=== PATIENT | male | born 1960 | race Caucasian/White ===

== ENCOUNTER 2016-11-10 11:46 | Observation (INO) | payer OTHER ==
[2016-11-10] MEDS ORDERED: SODIUM CHLORIDE 500 ML IV ONE (11:54)
--- NOTE | 2016-11-10 11:54 | PDOC ---
History of Present Illness - General History Source: Patient Exam Limitations: No Limitations - History of Present Illness Initial Comments: 11/10/16 11:59 The patient is a 56-year-old man with a significant past medical history of hypertension, hypercholesterolemia and borderline diabetes (not on any medications; diet controlled) who presents to the emergency department for further evaluation of near syncope after rapid response. Patient states that he felt fine this morning. He admits he was feeling slightly hot and sweaty on his way into the hospital but he attributed this to wearing a sweater. He states that he was at medical records when he went up to the window and suddenly felt lightheaded, generally weak and nauseous. He was able to walk back to his chair when he states that there was a brief period of time (approximately 1-2 minutes ) where he can not recall the events. He denies experiencing any chest pain, chest pressure, dizziness, visual changes, nausea, abdominal pain, back pain, neck pain, lower extremity pain, headache prior/post event. He reports typically having shortness of breath one exertion, particularly when walking just about 3 blocks (for the past year). He reports that he has never had a full Cardiology workup. No history of echocardiograms/stress tests in the past. He attributes his symptoms of lightheadedness and nausea secondary to a low sugar count, although on rapid response scene, he was noted to have a blood glucose measurement of 110. Patient was given a few sips of Pepsi and was transferred down to the ED. Patient recalls a similar episode in the past (a few months ago), with associated shaking, had 2 cans of soda and felt immediately fine. No fever, chills. No abdominal pain, nausea, vomiting. No urinary complaints. Allergies: Sulfonamide antibiotics. Shellfish Past Surgical History: None reported Social History: No tobacco, EtOH and recreational drug use. Primary Care Physician: Jin Ayala [facility] <Arely Martínez - Last Filed: 11/10/16 13:14> <Devin Suh - Last Filed: 11/10/16 13:19> - General Chief Complaint: Lightheaded Stated Complaint: RAPID RESPONSE Time Seen by Provider: 11/10/16 11:53 Past History <Arely Martínez - Last Filed: 11/10/16 13:14> <Devin Suh - Last Filed: 11/10/16 13:19> - Past Medical History Allergies/Adverse Reactions: Allergies Allergy/AdvReac Type Severity Reaction Status Date / Time shellfish derived Allergy Severe Hives Verified 11/10/16 11:54 Sulfa (Sulfonamide Allergy Severe Difficulty Verified 11/10/16 11:54 Antibiotics) Breathing Home Medications: Ambulatory Orders Unobtainable [Unobtainable] 11/10/16 Review of Systems - Review of Systems Constitutional: No: Chills, Fever Respiratory: No: Cough, Shortness of Breath Cardiac (ROS): Yes: Lightheadedness, Syncope. No: Chest Pain, Edema, Palpitations ABD/GI: No: Diarrhea, Nausea, Vomiting All Other Systems: Reviewed and Negative <Devin Suh - Last Filed: 11/10/16 13:19> *Physical Exam - Physical Exam Comments: 11/10/16 11:59 GENERAL: The patient is awake, alert, and fully oriented, in no acute distress. HEAD: Normal with no signs of trauma. EYES: Pupils equal, round and reactive to light, extraocular movements intact, sclera anicteric, conjunctiva clear with no pallor. ENT: Ears normal, nares patent, oropharynx clear without exudates. Moist mucous membranes. NECK: Normal range of motion, supple without lymphadenopathy, JVD, or masses. LUNGS: Breath sounds equal, clear to auscultation bilaterally. No wheeze/ crackles. HEART: Regular rate and rhythm, normal S1 and S2 without murmur or rub. ABDOMEN: Soft/nontender/nondistended. BS wnl. No guarding or rebound. No palpable masses. No hepatosplenomegaly. EXTREMITIES: Normal range of motion, no edema. No clubbing or cyanosis. No cords, erythema, or tenderness. NEUROLOGICAL: Cranial nerves II through XII grossly intact. Normal speech. PSYCH: Normal mood, normal affect. SKIN: Warm, Dry, normal turgor, no rashes or lesions noted. <Arely Martínez - Last Filed: 11/10/16 13:14> Heart Score/ECG Review #1 ECG reviewed & interpreted by me at: 11:48 General ECG Interpretation: Sinus Rhythm, Normal Rate (88), Normal Intervals ( qtc 438), No acute ischemic changes <Mary Suhele - Last Filed: 11/10/16 13:19> ED Treatment Course - LABORATORY CBC & Chemistry Diagram: 11/10/16 11:53 11/10/16 11:53 - RADIOLOGY Radiograph Interpretation: 11/10/16 13:14 EXAM: RAD/CHEST X-RAY PORTABLE Interpreted by Dr. Taz Perez IMPRESSION: AP sitting portable chest x-ray. No evidence of pneumonia, CHF, pleural effusion or pneumothorax. No evidence of bulky hilar, mediastinal adenopathy. Scoliotic curvature of the thoracic spine. EKG leads are noted. <Arely Martínez - Last Filed: 11/10/16 13:14> - LABORATORY CBC & Chemistry Diagram: 11/10/16 11:53 11/10/16 11:53 <VikashDevin - Last Filed: 11/10/16 13:19> Medical Decision Making - Medical Decision Making 11/10/16 13:12 MicroBlogged Hospitalist. <Arely Martínez - Last Filed: 11/10/16 13:14> - Medical Decision Making 11/10/16 12:33 A portion of this note was documented by scribe services under my direction. I have reviewed the details of the note, within reason, and agree with the documentation with the following case summary and management plan written by me. 56-year-old male with history of hypertension and high cholesterol, borderline diabetes presents to the emergency department as rapid response activation. Patient was in the hospital obtaining records for his grandson, after walking to the medical records window he became lightheaded and nauseous and diaphoretic , had near syncope. Patient assumed his glucose levels had gone down, he was given soda and his glucose level upon arrival in the emergency department a few minutes later was 110. Denies any chest pain or palpitations, reports baseline exercise tolerance of 3 blocks of the past year, never had a stress test or echocardiogram. No recent leg swelling or cramping, no PE risk factors. Vital signs normal. Exam is normal. 56-year-old male with near syncope, now improved. Unlikely that this was close related, more likely vasovagal/orthostatic versus arrhythmia/primary cardiac. Given risk factors and no history of stress test or echo, ACS or valve pathology is certainly on the differential. Labs, urinalysis EKG, chest x-ray IV fluids Monitor, likely cardiac monitoring overnight 11/10/16 13:18 labs wnl. nl hgb, trop neg. feels well, no complaints. accepted for obs tele by Dr. Amor. <Devin Suh - Last Filed: 11/10/16 13:19> *DC/Admit/Observation/Transfer - Attestations Scribe Attestion: 11/10/16 11:59 Documentation prepared by Arely Martínez, acting as medical physicist for Devin Suh MD. <Arely Martínez - Last Filed: 11/10/16 13:14> - Discharge Dispostion Admit: Yes <Devin Suh - Last Filed: 11/10/16 13:19> Diagnosis at time of Disposition: Near syncope - Discharge Dispostion Condition at time of disposition: Fair - Referrals Referrals: STAFF,NOT ON [Primary Care Provider] -
[2016-11-10 12:07] VITALS: BMI 32.1
[2016-11-10 12:12] LABS: BASOPHIL 0.7 % (0-2.0); EOSINOPHIL 1.4 % (0-4.5); MCH 28.2 pg (25.7-33.7); MCHC 32.1 g/dl (32.0-35.9); MEAN CELL VOLUME 87.6 fl (80-96); MEAN PLT VOLUME 8.1 fl (7.5-11.1); NEUTROPHILS 52.8 % (42.8-82.8); PLATELET COUNT 172 K/MM3 (134-434); RDW 14.5 % (11.9-15.9); WHITE BLOOD COUNT 8.6 K/mm3 (4.0-10.0)
[2016-11-10 12:34] LABS: ALBUMIN 3.9 g/dl (3.4-5.0); ANION GAP 9 (8-16); BILIRUBIN,TOTAL 0.4 mg/dL (0.2-1.0); CALCIUM 8.6 mg/dL (8.5-10.1); CO2 24 mmol/L (21-32); COCKROFT - GAULT 55.73; CREATININE 1.9 mg/dL (0.7-1.3); GLUCOSE,RANDOM 109 mg/dL (74-106); SGPT/ALT 41 U/L (12-78); TOT PROT 7.6 g/dl (6.4-8.2)
[2016-11-10 12:36] LABS: ALK PHOS 69 U/L (45-117); TROPONIN I < 0.02 ng/ml (0.00-0.05)
[2016-11-10 12:38] LABS: MAGNESIUM 2.3 mg/dL (1.8-2.4); SGOT/AST 42 U/L (15-37)
--- NOTE | 2016-11-10 12:53 | EKG ---
Test Reason : Blood Pressure : / mmHG Vent. Rate : 088 BPM Atrial Rate : 088 BPM P-R Int : 148 ms QRS Dur : 092 ms QT Int : 362 ms P-R-T Axes : 033 -04 020 degrees QTc Int : 438 ms NORMAL SINUS RHYTHM POSSIBLE ANTERIOR INFARCT , AGE UNDETERMINED ABNORMAL ECG NO PREVIOUS ECGS AVAILABLE Confirmed by MOON KAISER MD ([id number]) on 11/10/2016 12:52:41 PM Referred By: Confirmed By:MOON KAISER MD
[2016-11-10 12:54] LABS: INR 1.04 (0.82-1.09); PROTHROMBIN TIME (PATIENT) 11.4 SEC (9.98-11.88)
--- NOTE | 2016-11-10 14:38 | HP ---
CHIEF COMPLAINT:near syncope PCP: Dr. Sow @ [facility] clinic. HISTORY OF PRESENT ILLNESS: 56 yo M with significant PMHx of HTN, HLD and migraines presents to ER after near syncopal episode in hospital. He was at [facility] standing in line to picking supervisor some medical records for his grandson when he suddenly felt hot and flushed. He subsequently became shaky, diaphoretic and felt as if he was going to pass out.As per patient he states "it felt like my sugars were low".He did not have any chest pain , palpitations or heart irregularity. He was given some pepsi and a cookie and transferred down to ED for further evaluation. In ED vitals were stable and he felt better. He does mention that he has had 2-3 similar episodes in past were he felt his sugar was low after prolonged periods of standing or walking. He endorsed dysnea on exertion for the past year that has become progressively worse to point where his is winded after walking 3 blocks. He states he sleeps with 2-3 pillows at night and notices some foot and ankle swelling on occasion. He also endorses signs of orthostatic hypotension. He has never had cardiac work up with echo or stress test. Denies fever, chills. recent illness or sick contacts. ER course was notable for: (1)EKG- NSR , no st or t wave abnormalities (2)CXR- no acute pathology; no effusion or consolidation. (3)BG- 101 Recent Travel:Denies PAST MEDICAL HISTORY: HTN, HLD, Depression, Chronic osteo arthritis, migraines. PAST SURGICAL HISTORY: none Social History: Smoking:never Alcohol:never Drugs: denies Family History: Father: heart disease at 60 , Mother pancreatic ca. Allergies shellfish derived Allergy (Severe, Verified 11/10/16 11:54) Hives Sulfa (Sulfonamide Antibiotics) Allergy (Severe, Verified 11/10/16 11:54) Difficulty Breathing HOME MEDICATIONS: Home Medications Medication Instructions Recorded Unobtainable [Unobtainable] 11/10/16 REVIEW OF SYSTEMS CONSTITUTIONAL:(+)diaphoresis, generalized weakness Absent: fever, chills, , malaise, loss of appetite, weight change HEENT: Absent: rhinorrhea, nasal congestion, throat pain, throat swelling, difficulty swallowing, mouth swelling, ear pain, eye pain, visual changes CARDIOVASCULAR:(+) syncope Absent: chest pain, palpitations, irregular heart rate, lightheadedness, peripheral edema RESPIRATORY: Absent: cough, shortness of breath, dyspnea with exertion, orthopnea, wheezing, stridor, hemoptysis GASTROINTESTINAL: Absent: abdominal pain, abdominal distension, nausea, vomiting, diarrhea, constipation, melena, hematochezia GENITOURINARY: Absent: dysuria, frequency, urgency, hesitancy, hematuria, flank pain, genital pain MUSCULOSKELETAL: (+) chronic joint pain Absent: myalgia, arthralgia, joint swelling, back pain, neck pain SKIN: Absent: rash, itching, pallor HEMATOLOGIC/IMMUNOLOGIC: Absent: easy bleeding, easy bruising, lymphadenopathy, frequent infections ENDOCRINE: Absent: unexplained weight gain, unexplained weight loss, heat intolerance, cold intolerance NEUROLOGIC: (+) dizziness Absent: headache, focal weakness or paresthesias, , unsteady gait, seizure, mental status changes, bladder or bowel incontinence PSYCHIATRIC: Absent: anxiety, depression, suicidal or homicidal ideation, hallucinations. PHYSICAL EXAMINATION GENERAL: AAOx3 , NAD HEAD: NC/AT EYES: PERRLA,EOMI, sclera anicteric, conjuctival erythema. No lid lag. EARS, NOSE, THROAT: Dry mucous membranes. NECK:supple without JVD, or masses. LUNGS: CTAB, No wheezes, and no crackles. No accessory muscle use. HEART: RRR, normal S1 and S2 without murmur, rub or gallop. ABDOMEN: Soft, NT,ND,BS(+), no guarding, no rebound, no masses. No hepatomegaly or splenomegaly. MUSCULOSKELETAL: Normal range of motion at all joints. No bony deformities or tenderness. No CVA tenderness. UPPER EXTREMITIES: 2+ pulses, warm, well-perfused. No cyanosis. No clubbing. No peripheral edema. LOWER EXTREMITIES: 2+ pulses, warm, well-perfused. No calf tenderness. No peripheral edema. NEUROLOGICAL: Cranial nerves II-XII intact. Normal speech. gait not observed. PSYCHIATRIC: Cooperative. Good eye contact. Appropriate mood and affect. SKIN: Warm, dry, normal turgor, no rashes or lesions noted, normal capillary refill. ASSESSMENT/PLAN: 56 yo M with HTN, HLD, and migraines placed on observation for near syncopal episode. Problem List - Problem (1) Near syncope Assessment/Plan: * Placed on tele obs. * ECHO and carotid doppler ordered * Orthostatic VS * strict I/O's * IV hydration with NS @ 83ml/hr * HgbA1c * BNP * UA * Cardiology consult - Dr. Kauffman (2) HTN (hypertension) (3) HLD (hyperlipidemia) (4) Depression (5) Chronic migraine (6) Osteoarthritis involving multiple joints on both sides of body Visit type - Emergency Visit Emergency Visit: Yes ED Registration Date: 11/10/16 Care time: The patient presented to the Emergency Department on the above date and was hospitalized for further evaluation of their emergent condition. - New Patient This patient is new to me today: Yes Date on this admission: 11/10/16 - Critical Care Critical Care patient: No
--- NOTE | 2016-11-10 15:07 | CON.CARD ---
Consult Consult Specialty:: Cardiology Referred by:: Hospitalist Medicine Reason for Consultation:: Near syncope - History of Present Illness Chief Complaint: Near syncope History of Present Illness: 56 yo M with significant PMHx of HTN, HLD and migraines presents to ER after near syncopal episode in hospital. He was standing in line when he suddenly felt hot and flushed, diaphoretic and experienced near syncope, possible hypoglycemia, but denies true syncope. He denies chest pain, palpitations, does report dysnea on exertion for the past year that has become progressively worse to point where he becomes winded after walking 3 blocks, stable orthopnea. Recent Travel:Denies PAST MEDICAL HISTORY: HTN, HLD, Depression, Chronic osteo arthritis, migraines. PAST SURGICAL HISTORY: none Social History: Smoking:never Alcohol:never Drugs: denies Family History: Father: heart disease at 60 , Mother pancreatic ca. Allergies shellfish derived Allergy (Severe, Verified 11/10/16 11:54) Hives Sulfa (Sulfonamide Antibiotics) Allergy (Severe, Verified 11/10/16 11:54) Difficulty Breathing - History Source History Provided By: Patient Limitations to Obtaining History: No Limitations - Alcohol/Substance Use Hx Alcohol Use: No - Smoking History Smoking history: Never smoked Home Medications - Allergies Allergies/Adverse Reactions: Allergies Allergy/AdvReac Type Severity Reaction Status Date / Time shellfish derived Allergy Severe Hives Verified 11/10/16 11:54 Sulfa (Sulfonamide Allergy Severe Difficulty Verified 11/10/16 11:54 Antibiotics) Breathing - Home Medications Home Medications: Ambulatory Orders Unobtainable [Unobtainable] 11/10/16 Review of Systems - Review of Systems Neurological: reports: Dizziness Vital Signs: Vital Signs Temperature 98.0 F 11/10/16 12:00 Pulse Rate 70 11/10/16 14:05 Respiratory Rate 18 11/10/16 14:05 Blood Pressure 137/99 11/10/16 14:05 O2 Sat by Pulse Oximetry (%) 100 11/10/16 14:05 Constitutional: Yes: No Distress, Calm Neck: Yes: Supple Respiratory: Yes: Regular, CTA Bilaterally Gastrointestinal: Yes: Normal Bowel Sounds, Soft Cardiovascular: Yes: Regular Rate and Rhythm JVD: No Carotid Bruit: No Heart Sounds: Yes: S1, S2 Edema: No - Other Data Labs, Other Data: INR, PTT INR 1.04 (0.82-1.09) 11/10/16 11:53 NSR @ 88 PRWP Problem List - Problems (1) HLD (hyperlipidemia) Code(s): E78.5 - HYPERLIPIDEMIA, UNSPECIFIED Qualifiers: Hyperlipidemia type: pure hypercholesterolemia Qualified Code(s): E78.00 - Pure hypercholesterolemia, unspecified; E78.0 - Pure hypercholesterolemia (2) HTN (hypertension) Code(s): I10 - ESSENTIAL (PRIMARY) HYPERTENSION Qualifiers: Hypertension type: essential hypertension Qualified Code(s): I10 - Essential (primary) hypertension (3) Near syncope Code(s): R55 - SYNCOPE AND COLLAPSE Assessment/Plan 1. Vasovagal near syncope with typical prodromal sxs possible hypoglycemic episode 2. HTN 3. Hyperlipidemia P:1. Check orthostatic VS, f/u echo and carotid u/s, tele to r/o sustained arrhythmia 2. Counselled on abortive maneuvers once prodromal sxs are re-experienced, stay well-hydrated, monitor BGT 3. Review outpatient medications 4. Thank you for consultative opportunity
[2016-11-10] MEDS: SODIUM CHLORIDE 1,000 ML IV SCH (15:29)
--- NOTE | 2016-11-10 18:58 | PN ---
Teaching Attending Note Name of Resident: Gee Sandhu ATTENDING PHYSICIAN STATEMENT I saw and evaluated the patient. I reviewed the resident's note and discussed the case with the resident. I agree with the resident's findings and plan as documented. SUBJECTIVE: Patient is feeling better with no acute distress. No fever or chills, no shortness of breath. OBJECTIVE: Vital Signs Temperature 98.6 F 11/10/16 16:56 Pulse Rate 97 H 11/10/16 16:56 Respiratory Rate 18 11/10/16 14:05 Blood Pressure 151/96 11/10/16 16:56 O2 Sat by Pulse Oximetry (%) 100 11/10/16 14:05 CBCD WBC 8.6 K/mm3 (4.0-10.0) 11/10/16 11:53 RBC 5.22 M/mm3 (4.00-5.60) 11/10/16 11:53 Hgb 14.7 GM/dL (11.7-16.9) 11/10/16 11:53 Hct 45.7 % (35.4-49) 11/10/16 11:53 MCV 87.6 fl (80-96) 11/10/16 11:53 MCHC 32.1 g/dl (32.0-35.9) 11/10/16 11:53 RDW 14.5 % (11.9-15.9) 11/10/16 11:53 Plt Count 172 K/MM3 (134-434) 11/10/16 11:53 MPV 8.1 fl (7.5-11.1) 11/10/16 11:53 CMP Sodium 139 mmol/L (136-145) 11/10/16 11:53 Potassium 4.9 mmol/L (3.5-5.1) 11/10/16 11:53 Chloride 106 mmol/L (98-107) 11/10/16 11:53 Carbon Dioxide 24 mmol/L (21-32) 11/10/16 11:53 Anion Gap 9 (8-16) 11/10/16 11:53 BUN 27 mg/dL (7-18) H 11/10/16 11:53 Creatinine 1.9 mg/dL (0.7-1.3) H 11/10/16 11:53 Creat Clearance w eGFR 36.59 (>60) 11/10/16 11:53 Random Glucose 109 mg/dL (74-106) H 11/10/16 11:53 Calcium 8.6 mg/dL (8.5-10.1) 11/10/16 11:53 Total Bilirubin 0.4 mg/dL (0.2-1.0) 11/10/16 11:53 AST 42 U/L (15-37) H 11/10/16 11:53 ALT 41 U/L (12-78) 11/10/16 11:53 Alkaline Phosphatase 69 U/L (45-117) 11/10/16 11:53 Total Protein 7.6 g/dl (6.4-8.2) 11/10/16 11:53 Albumin 3.9 g/dl (3.4-5.0) 11/10/16 11:53 CARDIAC ENZYMES Creatine Kinase 319 IU/L (39-308) H 11/10/16 11:53 Troponin I < 0.02 ng/ml (0.00-0.05) 11/10/16 11:53 Current Medications Generic Name Dose Route Start Last Admin Trade Name Freq PRN Reason Stop Dose Admin Heparin Sodium (Porcine) 5,000 unit 11/10/16 22:00 Heparin - SQ BID [facility] Sodium Chloride 1,000 mls @ 83 mls/hr 11/10/16 14:15 11/10/16 15:29 Normal Saline - IV 83 mls/hr ASDIR KELTON Administration Home Medications Medication Instructions Recorded Unobtainable [Unobtainable] 11/10/16 Cardiac: S1S2 positive Chest: CTA BL ABdomen : soft, NT, NR, Extremities: Pulses are positive, No edema ROS/PE: as per resident's note ASSESSMENT AND PLAN: 56 yo M with HTN, HLD, and migraines placed on observation for near syncopal episode. #Near syncope : most likely Vasovagal ,Placed on tele obs. ordered ECHO and carotid doppler, CE q6hr x3 , EKG, check Orthostatic BP ; IV hydration with NS @ 83ml/hr x 1 liter ; check HgbA1c ,BNP , Cardiology consult Dr. Kauffman appreciated. # Htn continue home meds # Hyperlipidemia continue meds. DVT Px:
[2016-11-10] MEDS: HEPARIN NA (PORCINE) 5,000 UNITS/ML 1ML VIAL SQ SCH (22:22)
[2016-11-11 07:57] LABS: ALBUMIN 3.4 g/dl (3.4-5.0); CALCIUM 8.5 mg/dL (8.5-10.1); MAGNESIUM 2.3 mg/dL (1.8-2.4)
[2016-11-11 08:00] LABS: BILIRUBIN,TOTAL 0.3 mg/dL (0.2-1.0); COCKROFT - GAULT 58.83; CREATININE 1.8 mg/dL (0.7-1.3); TOT PROT 6.7 g/dl (6.4-8.2)
[2016-11-11 08:02] LABS: EOSINOPHIL 1.7 % (0-4.5); MCH 28.3 pg (25.7-33.7); MCHC 32.2 g/dl (32.0-35.9); MEAN CELL VOLUME 87.9 fl (80-96); MEAN PLT VOLUME 8.5 fl (7.5-11.1); NEUTROPHILS 60.8 % (42.8-82.8); PLATELET COUNT 159 K/MM3 (134-434); RDW 14.8 % (11.9-15.9); WHITE BLOOD COUNT 6.2 K/mm3 (4.0-10.0)
[2016-11-11] MEDS: HEPARIN NA (PORCINE) 5,000 UNITS/ML 1ML VIAL SQ SCH (09:34)
[2016-11-11] MEDS ORDERED: PROPRANOLOL HCL 40 MG TABLET PO SCH (10:00)
[2016-11-11] MEDS ORDERED: amLODIPine BESYLATE 5 MG TABLET (FP) PO SCH (10:00)
[2016-11-11 11:43] VITALS: BP 132/89; TEMP 98
--- NOTE | 2016-11-11 12:22 | PN ---
Progress Note, Physician History of Present Illness: No further near or true syncope, denies chest pain, dyspnea or palpitations. - Current Medication List Current Medications: Active Medications Amlodipine Besylate (Norvasc -) 5 mg PO DAILY [facility] Last Admin: 11/11/16 09:34 Dose: 5 mg Atorvastatin Calcium (Lipitor -) 10 mg PO [facility] Heparin Sodium (Porcine) (Heparin -) 5,000 unit SQ BID [facility] Last Admin: 11/11/16 09:34 Dose: 5,000 unit Sodium Chloride (Normal Saline -) 1,000 mls @ 83 mls/hr IV ASDIR [facility] Last Admin: 11/10/16 15:29 Dose: 83 mls/hr Propranolol HCl (Inderal -) 40 mg PO DAILY [facility] Last Admin: 11/11/16 09:43 Dose: 40 mg - Objective Vital Signs: Vital Signs Temperature 98.0 F 11/11/16 10:00 Pulse Rate 67 11/11/16 10:00 Respiratory Rate 20 11/11/16 10:00 Blood Pressure 132/89 11/11/16 10:00 O2 Sat by Pulse Oximetry (%) 97 11/11/16 08:00 Constitutional: Yes: No Distress, Calm Neck: Yes: Supple Cardiovascular: Yes: Regular Rate and Rhythm Respiratory: Yes: Regular, CTA Bilaterally Gastrointestinal: Yes: Normal Bowel Sounds, Soft Edema: No Labs: CBC, BMP 11/11/16 05:35 11/11/16 05:35 INR, PTT INR 1.04 (0.82-1.09) 11/10/16 11:53 - ....Imaging EKG: Report Reviewed (Tele: SR, no pauses) Problem List - Problems (1) HLD (hyperlipidemia) Code(s): E78.5 - HYPERLIPIDEMIA, UNSPECIFIED Qualifiers: Hyperlipidemia type: pure hypercholesterolemia Qualified Code(s): E78.00 - Pure hypercholesterolemia, unspecified; E78.0 - Pure hypercholesterolemia (2) HTN (hypertension) Code(s): I10 - ESSENTIAL (PRIMARY) HYPERTENSION Qualifiers: Hypertension type: essential hypertension Qualified Code(s): I10 - Essential (primary) hypertension (3) Near syncope Code(s): R55 - SYNCOPE AND COLLAPSE (4) Chronic kidney disease (CKD) Code(s): N18.9 - CHRONIC KIDNEY DISEASE, UNSPECIFIED Qualifiers: Chronic kidney disease stage: stage 2 (mild) Qualified Code(s): N18.2 - Chronic kidney disease, stage 2 (mild) Assessment/Plan 11/10/2016 Echo: Normal LV size and fxn, tr-mild MR, tr TR 1. Vasovagal near syncope with typical prodromal sxs possible hypoglycemic episode 2. HTN 3. Hyperlipidemia 4. CKD P:1. Echo, carotid u/s and tele monitor results unrevealing 2. Counselled on abortive maneuvers once prodromal sxs are re-experienced, stay well-hydrated, continue [place] 5/10 qd 3. Patient may be d/jose with f/u with primary care
--- NOTE | 2016-11-11 14:02 | PN ---
Teaching Attending Note Name of Resident: Gee Sandhu ATTENDING PHYSICIAN STATEMENT I saw and evaluated the patient. I reviewed the resident's note and discussed the case with the resident. I agree with the resident's findings and plan as documented. SUBJECTIVE: OBJECTIVE: Vital Signs Temperature 98.0 F 11/11/16 10:00 Pulse Rate 67 11/11/16 10:00 Respiratory Rate 20 11/11/16 10:00 Blood Pressure 132/89 11/11/16 10:00 O2 Sat by Pulse Oximetry (%) 97 11/11/16 08:00 CBCD WBC 6.2 K/mm3 (4.0-10.0) 11/11/16 05:35 RBC 5.04 M/mm3 (4.00-5.60) 11/11/16 05:35 Hgb 14.3 GM/dL (11.7-16.9) 11/11/16 05:35 Hct 44.3 % (35.4-49) 11/11/16 05:35 MCV 87.9 fl (80-96) 11/11/16 05:35 MCHC 32.2 g/dl (32.0-35.9) 11/11/16 05:35 RDW 14.8 % (11.9-15.9) 11/11/16 05:35 Plt Count 159 K/MM3 (134-434) 11/11/16 05:35 MPV 8.5 fl (7.5-11.1) 11/11/16 05:35 CMP Sodium 143 mmol/L (136-145) 11/11/16 05:35 Potassium 4.8 mmol/L (3.5-5.1) 11/11/16 05:35 Chloride 108 mmol/L (98-107) H 11/11/16 05:35 Carbon Dioxide 27 mmol/L (21-32) 11/11/16 05:35 Anion Gap 8 (8-16) 11/11/16 05:35 BUN 25 mg/dL (7-18) H 11/11/16 05:35 Creatinine 1.8 mg/dL (0.7-1.3) H 11/11/16 05:35 Creat Clearance w eGFR 38.95 (>60) 11/11/16 05:35 Random Glucose 82 mg/dL (74-106) D 11/11/16 05:35 Calcium 8.5 mg/dL (8.5-10.1) 11/11/16 05:35 Total Bilirubin 0.3 mg/dL (0.2-1.0) D 11/11/16 05:35 AST 24 U/L (15-37) D 11/11/16 05:35 ALT 33 U/L (12-78) 11/11/16 05:35 Alkaline Phosphatase 66 U/L (45-117) 11/11/16 05:35 Total Protein 6.7 g/dl (6.4-8.2) 11/11/16 05:35 Albumin 3.4 g/dl (3.4-5.0) 11/11/16 05:35 CARDIAC ENZYMES Creatine Kinase 319 IU/L (39-308) H 11/10/16 11:53 Troponin I < 0.02 ng/ml (0.00-0.05) 11/10/16 19:45 Current Medications Generic Name Dose Route Start Last Admin Trade Name Freq PRN Reason Stop Dose Admin Amlodipine Besylate 5 mg 11/11/16 10:00 11/11/16 09:34 Norvasc - PO 5 mg DAILY KELTON Administration Atorvastatin Calcium 10 mg 11/11/16 22:00 Lipitor - PO HS [facility] Heparin Sodium (Porcine) 5,000 unit 11/10/16 22:00 11/11/16 09:34 Heparin - SQ 5,000 unit BID KELTON Administration Sodium Chloride 1,000 mls @ 83 mls/hr 11/10/16 14:15 11/10/16 15:29 Normal Saline - IV 83 mls/hr ASDIR KELTON Administration Propranolol HCl 40 mg 11/11/16 10:00 11/11/16 09:43 Inderal - PO 40 mg DAILY KELTON Administration Home Medications Medication Instructions Recorded Amlodipine Besylate 5 mg PO DAILY 11/11/16 Propranolol HCl 40 mg PO DAILY 11/11/16 Simvastatin [Simvastatin] 20 mg PO HS 11/11/16 Laboratory Tests 11/10/16 11/11/16 11/11/16 19:45 05:35 06:22 BUN 25 H Creatinine 1.8 H POC Glucometer 88 Hemoglobin A1c % 5.8 11/11/16 11:18 BUN Creatinine POC Glucometer 81 Hemoglobin A1c % ECHO: trace TR, Trace MR ASSESSMENT AND PLAN: 56 yo M with HTN, HLD, and migraines placed on observation for near syncopal episode. #Near syncope due to vasovagal: All the work up is negative so far. ECHO and carotid doppler, CE q6hr x3 negative,HgbA1c 5.8 ,follow with Dr. Kauffman for further stress test. # ARF: Unknown baseline; follow up with Nephrology # Htn continue home meds # Hyperlipidemia continue meds. Patient can be discharge home.
[2016-11-11] MEDS: SODIUM CHLORIDE 1,000 ML IV SCH (14:04)
[2016-11-11 14:11] VITALS: PULSE 66
--- NOTE | 2016-11-11 14:29 | DS ---
Physical Exam: SUBJECTIVE: Patient seen and examined at bedside. No overnight events. No new complaints. Patient feels fine and wants to go home. No recurrent signs of syncope or lightheadedness. Denies CP, FRANCOIS, palpitations, abd. pain, N/V. OBJECTIVE: Vital Signs Period Temp Pulse Resp BP Sys/Irene Pulse Ox Last 24 Hr 97.6 F-98.6 F 64-97 20-20 124-151/56-104 97-100 PHYSICAL EXAM GENERAL: AAOx3 , NAD HEAD: NC/AT EYES: PERRLA,EOMI, sclera anicteric, conjuctival erythema. No lid lag. EARS, NOSE, THROAT: Dry mucous membranes. NECK:supple without JVD, or masses. LUNGS: CTAB, No wheezes, and no crackles. No accessory muscle use. HEART: RRR, normal S1 and S2 without murmur, rub or gallop. ABDOMEN: Soft, NT,ND,BS(+), no guarding, no rebound, no masses. No hepatomegaly or splenomegaly. MUSCULOSKELETAL: Normal range of motion at all joints. No bony deformities or tenderness. No CVA tenderness. UPPER EXTREMITIES: 2+ pulses, warm, well-perfused. No cyanosis. No clubbing. No peripheral edema. LOWER EXTREMITIES: 2+ pulses, warm, well-perfused. No calf tenderness. No peripheral edema. NEUROLOGICAL: Cranial nerves II-XII intact. Normal speech. gait not observed. PSYCHIATRIC: Cooperative. Good eye contact. Appropriate mood and affect. SKIN: Warm, dry, normal turgor, no rashes or lesions noted, normal capillary refill.. LABS Laboratory Results - last 24 hr 11/10/16 11/10/16 11/10/16 19:45 19:45 19:45 WBC RBC Hgb Hct MCV MCHC RDW Plt Count MPV Neutrophils % Lymphocytes % Monocytes % Eosinophils % Basophils % Sodium Potassium Chloride Carbon Dioxide Anion Gap BUN Creatinine Creat Clearance w eGFR POC Glucometer Random Glucose Hemoglobin A1c % 5.8 Calcium Phosphorus Magnesium Total Bilirubin AST ALT Alkaline Phosphatase Troponin I < 0.02 B-Natriuretic Peptide 25.21 Total Protein Albumin 11/10/16 11/11/16 11/11/16 22:19 05:35 05:35 WBC 6.2 RBC 5.04 Hgb 14.3 Hct 44.3 MCV 87.9 MCHC 32.2 RDW 14.8 Plt Count 159 MPV 8.5 Neutrophils % 60.8 Lymphocytes % 28.0 D Monocytes % 8.5 Eosinophils % 1.7 Basophils % 1.0 Sodium 143 Potassium 4.8 Chloride 108 H Carbon Dioxide 27 Anion Gap 8 BUN 25 H Creatinine 1.8 H Creat Clearance w eGFR 38.95 POC Glucometer 105 Random Glucose 82 D Hemoglobin A1c % Calcium 8.5 Phosphorus 3.0 Magnesium 2.3 Total Bilirubin 0.3 D AST 24 D ALT 33 Alkaline Phosphatase 66 Troponin I B-Natriuretic Peptide Total Protein 6.7 Albumin 3.4 11/11/16 11/11/16 06:22 11:18 WBC RBC Hgb Hct MCV MCHC RDW Plt Count MPV Neutrophils % Lymphocytes % Monocytes % Eosinophils % Basophils % Sodium Potassium Chloride Carbon Dioxide Anion Gap BUN Creatinine Creat Clearance w eGFR POC Glucometer 88 81 Random Glucose Hemoglobin A1c % Calcium Phosphorus Magnesium Total Bilirubin AST ALT Alkaline Phosphatase Troponin I B-Natriuretic Peptide Total Protein Albumin IMAGING: * EXAM#: TYPE/EXAM: RESULT: [id number] RAD/CHEST X-RAY PORTABLE* Chest pain. Evaluate for infiltrate. AP sitting portable chest x-ray. No evidence of pneumonia, CHF, pleural effusion or pneumothorax. No evidence of bulky hilar, mediastinal adenopathy. Scoliotic curvature of the thoracic spine. EKG leads are noted. Impression No evidence of pneumonia, CHF, pleural effusion or pneumothorax Reported By: Taz Perez MD 11/10/16 2971 * EXAM#: TYPE/EXAM: RESULT: [id number] US/CAROTID COLOR FLOW DOPP US Bilateral duplex Doppler craniocaudad ultrasound: Clinical information given: Syncope. Doppler ultrasound of the intracranial carotid arteries is performed. There is no sonographic evidence of a hemodynamically significant extracranial carotid artery stenosis (reported ultrasound sensitivity 85 to 90%). The vertebral arteries appear to demonstrate antegrade flow. Impression: No evidence of hemodynamically significant stenosis. Reported By: Reid Vegas MD 1976 * ECHOCARDIOGRAM: Normal LV size and function, E/A reversal consistant but no diagnostic for poor LV compliance, trace TR , Mod aortic root dilation. HOSPITAL COURSE: 56 yo M with PMHx of HTN, HLD, and CKD presents with presyncopal episode. Echo and carotids show no significant pathology to explain symptoms. HgbA1C 5.8 pre- diabetes.No hypoglycemia during observation. Tele monitoring showed NSR without pauses . Seen and cleared by cardiolgy. Not sure of his baseline Creatinine will refer him to healthcare applications analyst for follow up. BP well controlled on home meds. Can continue all home meds without adjustment. Patient is stable for discharge. Told to follow up with primary in one week and make an appointment to see nephrology for further work up as outpatient. Date of Admission:11/10/16 Date of Discharge: 11/11/16 Minutes to complete discharge: 35 Discharge Summary Reason For Visit: PRE SYNCOPE Current Active Problems Near syncope (Acute) Chronic migraine (Chronic) Depression (Chronic) HLD (hyperlipidemia) (Chronic) HTN (hypertension) (Chronic) Osteoarthritis involving multiple joints on both sides of body (Chronic) Condition: Stable - Instructions Diet, Activity, Other Instructions: Follow up with primary in one week. I am referring you to kidney specialist because unsure what your baseline kidney function is and Creatinine was elevated during this observation. His name is Dr. Martinez and his phone number is [phone] to make an appointment. DASH diet. Increase activity as tolerated. Follow with for further cardiology work up. Stress test as an outpatient Follow with for further Kidney work up. Referrals: STAFF,NOT ON [Primary Care Provider] - Makenzie Martinez MD [Staff Physician] - 2 Weeks Navin Kauffman MD [Staff Physician] - 1 Week Disposition: HOME - Home Medications Comprehensive Discharge Medication List: Ambulatory Orders Amlodipine Besylate 5 mg PO DAILY 11/11/16 Propranolol HCl 40 mg PO DAILY 11/11/16 Simvastatin [Simvastatin] 20 mg PO HS 11/11/16 Problem List - Problems (1) Near syncope (2) HTN (hypertension) (3) HLD (hyperlipidemia) (4) Depression (5) Chronic migraine (6) Osteoarthritis involving multiple joints on both sides of body This patient is new to me today: No Emergency Visit: Yes ED Registration Date: 11/10/16 Care time: The patient presented to the Emergency Department on the above date and was hospitalized for further evaluation of their emergent condition. Critical Care patient: No - Discharge Referral Referred to [facility] No
[2016-11-11] MEDS ORDERED: ATORVASTATIN CA 10 MG TABLET (FP) PO SCH (22:00)
== END 2016-11-11 14:30 | disposition home or self-care (01) ==
LOC: JER 11:46 → JERBED 13:19 → J4W 20:55
PROVIDERS: ADMIT Internal Medicine; ATTEND Internal Medicine
PROC: 3E0337Z Introduction of Electrolytic and Water Balance Substance into Peripheral Vein, Percutaneous Approach (ICD-10-PCS; principal; 2016-11-10)
DX: R55 Syncope and collapse (principal); E78.5 Hyperlipidemia, unspecified; F32.9 Major depressive disorder, single episode, unspecified; Z86.69 Personal history of other diseases of the nervous system and sense organs; R73.03 Prediabetes; M19.90 Unspecified osteoarthritis, unspecified site; Z91.013 Allergy to seafood; Z88.2 Allergy status to sulfonamides; I12.9 Hypertensive chronic kidney disease with stage 1 through stage 4 chronic kidney disease, or unspecified chronic kidney disease; N18.2 Chronic kidney disease, stage 2 (mild)
CPT/HCPCS: 36415; 71010-TC; 80053; 82550; 82553; 83036; 83735; 83880; 84100; 84484; 85025; 85610; 93005; 93010; 93306-TC; 93880-TC; 99285-25; G0378; J1644

== ENCOUNTER 2020-07-15 06:46 | Inpatient (IN) | payer OTHER ==
[2020-07-15] MEDS ORDERED: LACTATED RINGERS SOLUTION 1000 ML INFUS.BAG IV ONE (07:36)
[2020-07-15] MEDS ORDERED: ONDANSETRON 4 MG/2 ML VIAL IVPUSH ONE (07:37)
[2020-07-15] MEDS ORDERED: ONDANSETRON 4 MG/2 ML VIAL ONE (07:52)
[2020-07-15 08:07] LABS: BASO % 0.3 % (0-2.0); LYMPH % 11.3 % (8-40); MCHC 29.7 g/dl (32.0-35.9); MEAN CELL VOLUME 65.9 fl (80-96); MEAN PLT VOLUME 8.2 fl (7.5-11.1); MONO % 7.7 % (3.8-10.2); NEUT % 80.7 % (42.8-82.8); PLATELET COUNT 309 K/MM3 (134-434); RBC 2.43 M/mm3 (4.00-5.60); RDW 21.5 % (11.9-15.9); WHITE BLOOD COUNT 7.8 K/mm3 (4.0-10.0)
[2020-07-15 08:13] LABS: INR 1.26 (0.83-1.09); PROTHROMBIN TIME (PATIENT) 15.4 SEC (9.7-13.0)
[2020-07-15 08:14] LABS: CHLORIDE 102 mmol/L (98-107); POTASSIUM 4.3 mmol/L (3.5-5.1); SODIUM 135 mmol/L (136-145)
[2020-07-15 08:16] LABS: ACTIVATED PTT 24.9 SECONDS (25.2-36.5); ALBUMIN 2.5 g/dl (3.4-5.0); ANION GAP 8 MMOL/L (8-16); BLOOD UREA NITROGEN 40.3 mg/dL (7-18); CALCIUM 8.1 mg/dL (8.5-10.1); CO2 25 mmol/L (21-32)
[2020-07-15 08:17] LABS: GLUCOSE,RANDOM 103 mg/dL (74-106)
[2020-07-15 08:18] LABS: LIPASE 515 U/L (73-393)
[2020-07-15 08:19] LABS: CREATININE 2.2 mg/dL (0.55-1.3); MCH 19.6 pg (25.7-33.7); SGOT/AST 20 U/L (15-37); SGPT/ALT 17 U/L (13-61)
[2020-07-15 08:20] LABS: HEMOGLOBIN 4.8 GM/dL (11.7-16.9)
[2020-07-15 08:21] LABS: BILIRUBIN,TOTAL 0.4 mg/dL (0.2-1); TOT PROT 6.3 g/dl (6.4-8.2)
[2020-07-15 08:22] LABS: ALK PHOS 39 U/L (45-117)
[2020-07-15 09:35] LABS: ANISOCYTOSIS 2+; MACROCYTOSIS 0; OVALOCYTE 1+; PLATELET ESTIMATE NORMAL
[2020-07-15] MEDS ORDERED: ACETAMINOPHEN 325 MG TABLET (FP) PO PRN (10:33)
[2020-07-15] MEDS ORDERED: SODIUM CHLORIDE 1,000 ML IV SCH (10:45)
[2020-07-15] MEDS ORDERED: ACETAMINOPHEN 1000 MG/100 ML VIAL (NON FORMULARY) IVPB PRN (11:56)
[2020-07-15] MEDS ORDERED: ONDANSETRON 4 MG/2 ML VIAL IVPUSH PRN (11:57)
[2020-07-15 22:10] LABS: HEMATOCRIT 20.3 % (35.4-49); MCH 22.6 pg (25.7-33.7); MCHC 31.1 g/dl (32.0-35.9); MEAN CELL VOLUME 72.6 fl (80-96); MEAN PLT VOLUME 8.5 fl (7.5-11.1); PLATELET COUNT 264 K/MM3 (134-434); RDW 24.1 % (11.9-15.9); WHITE BLOOD COUNT 6.9 K/mm3 (4.0-10.0)
[2020-07-15 22:20] LABS: HEMOGLOBIN 6.3 GM/dL (11.7-16.9)
[2020-07-15] MEDS: PANTOPRAZOLE 40 MG TABLET PO SCH (22:33)
[2020-07-16 09:12] LABS: BASO % 0.3 % (0-2.0); EOS % 0.2 % (0-4.5); HEMATOCRIT 24.5 % (35.4-49); LYMPH % 11.5 % (8-40); MCH 24.3 pg (25.7-33.7); MCHC 32.6 g/dl (32.0-35.9); MEAN CELL VOLUME 74.4 fl (80-96); MEAN PLT VOLUME 7.9 fl (7.5-11.1); MONO % 8.2 % (3.8-10.2); NEUT % 79.8 % (42.8-82.8); PLATELET COUNT 272 K/MM3 (134-434); RDW 23.6 % (11.9-15.9)
[2020-07-16 09:25] LABS: POTASSIUM 4.4 mmol/L (3.5-5.1)
[2020-07-16 09:27] LABS: BLOOD UREA NITROGEN 33.5 mg/dL (7-18)
[2020-07-16 09:28] LABS: ALBUMIN 2.2 g/dl (3.4-5.0); CALCIUM 7.6 mg/dL (8.5-10.1); MAGNESIUM 2.2 mg/dL (1.8-2.4)
[2020-07-16 09:32] LABS: CREATININE 1.7 mg/dL (0.55-1.3); PHOSPHOROUS 2.5 mg/dL (2.5-4.9)
[2020-07-16 09:33] LABS: BILIRUBIN,TOTAL 0.2 mg/dL (0.2-1); TOT PROT 5.6 g/dl (6.4-8.2)
[2020-07-16] MEDS: PANTOPRAZOLE 40 MG TABLET PO SCH ×2 (10:47→22:04)
[2020-07-16] MEDS ORDERED: PT OWN MED DRAWER 7, Y5N ONE (16:07)
[2020-07-16 20:01] LABS: BASO % 0.3 % (0-2.0); EOS % 0.7 % (0-4.5); HEMATOCRIT 21.9 % (35.4-49); LYMPH % 16.8 % (8-40); MCH 23.9 pg (25.7-33.7); MEAN CELL VOLUME 74.6 fl (80-96); MEAN PLT VOLUME 7.9 fl (7.5-11.1); NEUT % 74.2 % (42.8-82.8); PLATELET COUNT 248 K/MM3 (134-434); RBC 2.93 M/mm3 (4.00-5.60); RDW 23.6 % (11.9-15.9); WHITE BLOOD COUNT 6.6 K/mm3 (4.0-10.0)
[2020-07-17] MEDS: ZINC SULFATE 220 MG CAPSULE (FP) PO SCH (10:12)
[2020-07-17] MEDS: ASCORBIC ACID 500 MG TABLET (FP) PO SCH (10:12)
[2020-07-17] MEDS: CHOLECALCIFEROL (VIT D3) 5000 UNITS (125 MCG) CAP PO SCH (10:12)
[2020-07-17] MEDS: PANTOPRAZOLE 40 MG TABLET PO SCH ×2 (10:12→21:50)
[2020-07-17 11:24] LABS: BASO % 0.6 % (0-2.0); EOS % 0.6 % (0-4.5); HEMOGLOBIN 10.7 GM/dL (11.7-16.9); LYMPH % 10.7 % (8-40); MCHC 32.3 g/dl (32.0-35.9); MEAN CELL VOLUME 77.3 fl (80-96); MONO % 8.1 % (3.8-10.2); PLATELET COUNT 240 K/MM3 (134-434); RBC 4.26 M/mm3 (4.00-5.60); RDW 21.8 % (11.9-15.9); WHITE BLOOD COUNT 7.3 K/mm3 (4.0-10.0)
[2020-07-17 11:50] LABS: POTASSIUM 4.2 mmol/L (3.5-5.1)
[2020-07-17 11:56] LABS: ALBUMIN 2.2 g/dl (3.4-5.0); BLOOD UREA NITROGEN 18.7 mg/dL (7-18)
[2020-07-17 11:58] LABS: CALCIUM 7.8 mg/dL (8.5-10.1); MAGNESIUM 2.2 mg/dL (1.8-2.4)
[2020-07-17 12:03] LABS: PHOSPHOROUS 1.9 mg/dL (2.5-4.9); TOT PROT 5.6 g/dl (6.4-8.2)
[2020-07-17 12:04] LABS: CREATININE 1.6 mg/dL (0.55-1.3)
[2020-07-17 12:08] LABS: BILIRUBIN,TOTAL 0.4 mg/dL (0.2-1)
[2020-07-17] MEDS ORDERED: NAPH,MB-DB/K PH,MBDB POWDER PACKET PO ONE (13:45)
[2020-07-17] MEDS ORDERED: REMDESIVIR 200 MG in SODIUM CHLORIDE 210 ML IVPB ONE (15:00)
[2020-07-17 18:39] LABS: HEMATOCRIT 30.3 % (35.4-49); HEMOGLOBIN 9.8 GM/dL (11.7-16.9); MCHC 32.4 g/dl (32.0-35.9); MEAN CELL VOLUME 77.1 fl (80-96); MEAN PLT VOLUME 8.2 fl (7.5-11.1); PLATELET COUNT 236 K/MM3 (134-434); RBC 3.93 M/mm3 (4.00-5.60); RDW 22.2 % (11.9-15.9); WHITE BLOOD COUNT 8.1 K/mm3 (4.0-10.0)
[2020-07-17 21:22] VITALS: BMI 24.3
[2020-07-18] MEDS: PANTOPRAZOLE 40 MG TABLET PO SCH ×2 (10:06→22:53)
[2020-07-18] MEDS: ASCORBIC ACID 500 MG TABLET (FP) PO SCH (10:06)
[2020-07-18] MEDS: ZINC SULFATE 220 MG CAPSULE (FP) PO SCH (10:06)
[2020-07-18] MEDS: CHOLECALCIFEROL (VIT D3) 5000 UNITS (125 MCG) CAP PO SCH (10:06)
[2020-07-18 11:11] LABS: BASO % 0.4 % (0-2.0); EOS % 0.3 % (0-4.5); HEMATOCRIT 32.2 % (35.4-49); HEMOGLOBIN 10.6 GM/dL (11.7-16.9); LYMPH % 8.8 % (8-40); MCH 25.2 pg (25.7-33.7); MCHC 33.1 g/dl (32.0-35.9); MEAN CELL VOLUME 76.3 fl (80-96); MONO % 7.7 % (3.8-10.2); NEUT % 82.8 % (42.8-82.8); PLATELET COUNT 254 K/MM3 (134-434); RBC 4.22 M/mm3 (4.00-5.60); RDW 23.3 % (11.9-15.9); WHITE BLOOD COUNT 9.9 K/mm3 (4.0-10.0)
[2020-07-18 11:30] LABS: POTASSIUM 4.2 mmol/L (3.5-5.1)
[2020-07-18 11:34] LABS: ALBUMIN 2.3 g/dl (3.4-5.0); CALCIUM 7.8 mg/dL (8.5-10.1)
[2020-07-18 11:37] LABS: CREATININE 1.5 mg/dL (0.55-1.3); PHOSPHOROUS 2.2 mg/dL (2.5-4.9)
[2020-07-18 11:39] LABS: BILIRUBIN,TOTAL 1.2 mg/dL (0.2-1); TOT PROT 5.9 g/dl (6.4-8.2)
[2020-07-18 12:29] LABS: ANISOCYTOSIS 1+; MACROCYTOSIS 1+; PLATELET ESTIMATE NORMAL; TARGET CELLS 1+
[2020-07-18] MEDS: REMDESIVIR 100 MG in SODIUM CHLORIDE 230 ML IVPB SCH (16:19)
[2020-07-18 20:21] LABS: HEMOGLOBIN 10.2 GM/dL (11.7-16.9); MCH 25.3 pg (25.7-33.7); MCHC 32.9 g/dl (32.0-35.9); MEAN CELL VOLUME 76.7 fl (80-96); MEAN PLT VOLUME 8.9 fl (7.5-11.1); PLATELET COUNT 252 K/MM3 (134-434); RBC 4.04 M/mm3 (4.00-5.60); RDW 23.7 % (11.9-15.9); WHITE BLOOD COUNT 10.2 K/mm3 (4.0-10.0)
[2020-07-19 08:31] LABS: HEMATOCRIT 32.9 % (35.4-49); HEMOGLOBIN 10.6 GM/dL (11.7-16.9); MCH 24.7 pg (25.7-33.7); MCHC 32.3 g/dl (32.0-35.9); MEAN CELL VOLUME 76.6 fl (80-96); MEAN PLT VOLUME 7.8 fl (7.5-11.1); PLATELET COUNT 262 K/MM3 (134-434); RDW 24.1 % (11.9-15.9); WHITE BLOOD COUNT 12.2 K/mm3 (4.0-10.0)
[2020-07-19 08:39] LABS: BASO % 0.3 % (0-2.0); EOS % 0.1 % (0-4.5); HEMOGLOBIN 10.6 GM/dL (11.7-16.9); LYMPH % 8.7 % (8-40); MCH 25.2 pg (25.7-33.7); MCHC 33.1 g/dl (32.0-35.9); MEAN CELL VOLUME 76.2 fl (80-96); MEAN PLT VOLUME 7.7 fl (7.5-11.1); MONO % 8.5 % (3.8-10.2); NEUT % 82.4 % (42.8-82.8); PLATELET COUNT 247 K/MM3 (134-434); RDW 24.1 % (11.9-15.9); WHITE BLOOD COUNT 12.3 K/mm3 (4.0-10.0)
[2020-07-19 08:53] LABS: POTASSIUM 4.2 mmol/L (3.5-5.1)
[2020-07-19 09:03] LABS: CALCIUM 7.9 mg/dL (8.5-10.1)
[2020-07-19 09:04] LABS: ALBUMIN 2.3 g/dl (3.4-5.0); BLOOD UREA NITROGEN 15.7 mg/dL (7-18)
[2020-07-19 09:06] LABS: CREATININE 1.4 mg/dL (0.55-1.3); PHOSPHOROUS 2.6 mg/dL (2.5-4.9)
[2020-07-19] MEDS ORDERED: PT OWN MED DRAWER 7, Y5N ONE (09:07)
[2020-07-19 09:08] LABS: BILIRUBIN,TOTAL 0.7 mg/dL (0.2-1)
[2020-07-19] MEDS: ASCORBIC ACID 500 MG TABLET (FP) PO SCH (10:55)
[2020-07-19] MEDS: PANTOPRAZOLE 40 MG TABLET PO SCH ×2 (10:55→22:23)
[2020-07-19] MEDS: ZINC SULFATE 220 MG CAPSULE (FP) PO SCH (10:55)
[2020-07-19] MEDS: CHOLECALCIFEROL (VIT D3) 5000 UNITS (125 MCG) CAP PO SCH (10:55)
[2020-07-19] MEDS: REMDESIVIR 100 MG in SODIUM CHLORIDE 230 ML IVPB SCH (15:17)
[2020-07-19 20:39] LABS: HEMATOCRIT 32.1 % (35.4-49); HEMOGLOBIN 10.3 GM/dL (11.7-16.9); MCH 24.9 pg (25.7-33.7); MEAN PLT VOLUME 8.3 fl (7.5-11.1); PLATELET COUNT 276 K/MM3 (134-434); RBC 4.12 M/mm3 (4.00-5.60); RDW 24.3 % (11.9-15.9); WHITE BLOOD COUNT 13.8 K/mm3 (4.0-10.0)
[2020-07-20 09:19] LABS: BASO % 0.2 % (0-2.0); HEMATOCRIT 32.5 % (35.4-49); HEMOGLOBIN 10.2 GM/dL (11.7-16.9); LYMPH % 6.9 % (8-40); MCH 24.4 pg (25.7-33.7); MCHC 31.5 g/dl (32.0-35.9); MEAN CELL VOLUME 77.3 fl (80-96); MEAN PLT VOLUME 7.9 fl (7.5-11.1); MONO % 8.4 % (3.8-10.2); NEUT % 84.5 % (42.8-82.8); PLATELET COUNT 256 K/MM3 (134-434); RDW 24.9 % (11.9-15.9); WHITE BLOOD COUNT 14.3 K/mm3 (4.0-10.0)
[2020-07-20 09:30] LABS: POTASSIUM 4.5 mmol/L (3.5-5.1)
[2020-07-20 09:38] LABS: ALBUMIN 2.2 g/dl (3.4-5.0); CALCIUM 7.9 mg/dL (8.5-10.1); MAGNESIUM 2.2 mg/dL (1.8-2.4)
[2020-07-20 09:40] LABS: CREATININE 1.5 mg/dL (0.55-1.3)
[2020-07-20 09:41] LABS: PHOSPHOROUS 2.7 mg/dL (2.5-4.9)
[2020-07-20 09:42] LABS: BILIRUBIN,TOTAL 1.1 mg/dL (0.2-1)
[2020-07-20 09:43] LABS: TOT PROT 6.2 g/dl (6.4-8.2)
[2020-07-20] MEDS ORDERED: PT OWN MED DRAWER 7, Y5N ONE (10:14)
[2020-07-20] MEDS: ASCORBIC ACID 500 MG TABLET (FP) PO SCH (10:19)
[2020-07-20] MEDS: CHOLECALCIFEROL (VIT D3) 5000 UNITS (125 MCG) CAP PO SCH (10:19)
[2020-07-20] MEDS: ZINC SULFATE 220 MG CAPSULE (FP) PO SCH (10:19)
[2020-07-20] MEDS: PANTOPRAZOLE 40 MG TABLET PO SCH ×2 (10:20→21:47)
[2020-07-20] MEDS ORDERED: ACETAMINOPHEN 1000 MG/100 ML VIAL (NON FORMULARY) IVPB ONE (11:02)
[2020-07-20] MEDS ORDERED: cefTRIAXone SODIUM 1 GM VIAL ONE (11:24)
[2020-07-20] MEDS ORDERED: DEXTROSE 5%-WATER - 50 ML IVPB ONE (11:24)
[2020-07-20] MEDS: CEFTRIAXONE 1 GM in DEXTROSE 5%-WATER - 50 ML IVPB SCH (11:32)
[2020-07-20] MEDS ORDERED: DEXAMETHASONE SOD PHOSPHATE 10 MG/1 ML VIAL IVPUSH SCH (12:45)
[2020-07-20] MEDS: REMDESIVIR 100 MG in SODIUM CHLORIDE 230 ML IVPB SCH (16:23)
[2020-07-20 17:23] LABS: EPI CELLS >36 /uL (0-25.1); HYALINE CASTS 4 /uL (0-3.1); URINE APPEARANCE CLEAR; URINE BACTERIA 126 /uL (0-1359); URINE BILIRUBIN NEGATIVE (NEGATIVE); URINE COLOR YELLOW; URINE GLUCOSE (UA) NEGATIVE (NEGATIVE); URINE KETONE NEGATIVE (NEGATIVE); URINE LEUK ESTERASE NEGATIVE (NEGATIVE); URINE NITRITE NEGATIVE (NEGATIVE); URINE PROTEIN 2+ (NEGATIVE); URINE RBC 14 /uL (0-23.9); URINE WBC 18 /uL (0-25.8)
[2020-07-20 20:12] LABS: BASO % 0.2 % (0-2.0); HEMATOCRIT 30.2 % (35.4-49); HEMOGLOBIN 9.6 GM/dL (11.7-16.9); LYMPH % 2.9 % (8-40); MCH 24.8 pg (25.7-33.7); MCHC 31.9 g/dl (32.0-35.9); MEAN CELL VOLUME 77.7 fl (80-96); MEAN PLT VOLUME 7.4 fl (7.5-11.1); MONO % 3.9 % (3.8-10.2); PLATELET COUNT 239 K/MM3 (134-434); RBC 3.89 M/mm3 (4.00-5.60); RDW 25.3 % (11.9-15.9); WHITE BLOOD COUNT 14.1 K/mm3 (4.0-10.0)
[2020-07-20 21:21] LABS: ANISOCYTOSIS 3+; MACROCYTOSIS 1+; OVALOCYTE 1+; PLATELET ESTIMATE NORMAL
[2020-07-21 09:22] LABS: BASO % 0.2 % (0-2.0); HEMATOCRIT 31.9 % (35.4-49); HEMOGLOBIN 10.1 GM/dL (11.7-16.9); LYMPH % 4.8 % (8-40); MCH 24.6 pg (25.7-33.7); MCHC 31.6 g/dl (32.0-35.9); MEAN CELL VOLUME 77.8 fl (80-96); MEAN PLT VOLUME 7.9 fl (7.5-11.1); MONO % 8.6 % (3.8-10.2); NEUT % 86.4 % (42.8-82.8); PLATELET COUNT 287 K/MM3 (134-434); RDW 24.3 % (11.9-15.9); WHITE BLOOD COUNT 16.8 K/mm3 (4.0-10.0)
[2020-07-21] MEDS ORDERED: cefTRIAXone SODIUM 1 GM VIAL ONE (09:29)
[2020-07-21] MEDS ORDERED: DEXTROSE 5%-WATER - 50 ML IVPB ONE (09:30)
[2020-07-21] MEDS: CEFTRIAXONE 1 GM in DEXTROSE 5%-WATER - 50 ML IVPB SCH (09:36)
[2020-07-21] MEDS: ZINC SULFATE 220 MG CAPSULE (FP) PO SCH (09:37)
[2020-07-21] MEDS: PANTOPRAZOLE 40 MG TABLET PO SCH ×2 (09:37→21:18)
[2020-07-21] MEDS: ASCORBIC ACID 500 MG TABLET (FP) PO SCH (09:37)
[2020-07-21 09:41] LABS: POTASSIUM 4.6 mmol/L (3.5-5.1)
[2020-07-21 09:50] LABS: CALCIUM 8.3 mg/dL (8.5-10.1); MAGNESIUM 2.5 mg/dL (1.8-2.4)
[2020-07-21 09:53] LABS: ALBUMIN 2.2 g/dl (3.4-5.0); CREATININE 1.6 mg/dL (0.55-1.3)
[2020-07-21 09:55] LABS: BILIRUBIN,TOTAL 0.4 mg/dL (0.2-1); TOT PROT 6.4 g/dl (6.4-8.2)
[2020-07-21] MEDS: DEXAMETHASONE SOD PHOSPHATE 4 MG/1 ML VIAL IVPUSH SCH (10:57)
[2020-07-21] MEDS: CHOLECALCIFEROL (VIT D3) 5000 UNITS (125 MCG) CAP PO SCH (10:57)
[2020-07-21] MEDS: REMDESIVIR 100 MG in SODIUM CHLORIDE 230 ML IVPB SCH (15:18)
[2020-07-22 10:14] LABS: BASO % 0.1 % (0-2.0); HEMATOCRIT 31.7 % (35.4-49); HEMOGLOBIN 10.1 GM/dL (11.7-16.9); LYMPH % 4.3 % (8-40); MCH 24.6 pg (25.7-33.7); MCHC 31.8 g/dl (32.0-35.9); MEAN CELL VOLUME 77.3 fl (80-96); MEAN PLT VOLUME 7.9 fl (7.5-11.1); MONO % 7.1 % (3.8-10.2); NEUT % 88.5 % (42.8-82.8); PLATELET COUNT 340 K/MM3 (134-434); RDW 24.8 % (11.9-15.9); WHITE BLOOD COUNT 16.9 K/mm3 (4.0-10.0)
[2020-07-22 10:39] LABS: POTASSIUM 4.3 mmol/L (3.5-5.1)
[2020-07-22 10:55] LABS: ALBUMIN 2.2 g/dl (3.4-5.0); BLOOD UREA NITROGEN 39.1 mg/dL (7-18); CALCIUM 8.5 mg/dL (8.5-10.1); MAGNESIUM 2.5 mg/dL (1.8-2.4)
[2020-07-22 10:58] LABS: CREATININE 1.5 mg/dL (0.55-1.3); PHOSPHOROUS 3.9 mg/dL (2.5-4.9)
[2020-07-22 10:59] LABS: BILIRUBIN,TOTAL 1.3 mg/dL (0.2-1)
[2020-07-22] MEDS ORDERED: cefTRIAXone SODIUM 1 GM VIAL ONE (11:00)
[2020-07-22] MEDS ORDERED: DEXTROSE 5%-WATER - 50 ML IVPB ONE (11:00)
[2020-07-22 11:01] LABS: TOT PROT 6.5 g/dl (6.4-8.2)
[2020-07-22 11:12] LABS: ANISOCYTOSIS 1+; MACROCYTOSIS 0; PLATELET ESTIMATE NORMAL
[2020-07-22] MEDS: PANTOPRAZOLE 40 MG TABLET PO SCH ×2 (11:14→21:03)
[2020-07-22] MEDS: CHOLECALCIFEROL (VIT D3) 5000 UNITS (125 MCG) CAP PO SCH (11:14)
[2020-07-22] MEDS: ZINC SULFATE 220 MG CAPSULE (FP) PO SCH (11:14)
[2020-07-22] MEDS: ASCORBIC ACID 500 MG TABLET (FP) PO SCH (11:14)
[2020-07-22] MEDS: DEXAMETHASONE SOD PHOSPHATE 4 MG/1 ML VIAL IVPUSH SCH (11:14)
[2020-07-22] MEDS: CEFTRIAXONE 1 GM in DEXTROSE 5%-WATER - 50 ML IVPB SCH (11:14)
[2020-07-23 08:34] LABS: BASO % 0.1 % (0-2.0); HEMATOCRIT 30.1 % (35.4-49); HEMOGLOBIN 9.6 GM/dL (11.7-16.9); LYMPH % 7.6 % (8-40); MCH 24.7 pg (25.7-33.7); MEAN CELL VOLUME 77.2 fl (80-96); MEAN PLT VOLUME 8.2 fl (7.5-11.1); MONO % 7.1 % (3.8-10.2); NEUT % 85.2 % (42.8-82.8); PLATELET COUNT 322 K/MM3 (134-434); RDW 25.2 % (11.9-15.9); WHITE BLOOD COUNT 14.9 K/mm3 (4.0-10.0)
[2020-07-23 08:45] LABS: INR 1.39 (0.83-1.09); PROTHROMBIN TIME (PATIENT) 16.9 SEC (9.7-13.0)
[2020-07-23] MEDS ORDERED: cefTRIAXone SODIUM 1 GM VIAL ONE (09:40)
[2020-07-23] MEDS ORDERED: DEXTROSE 5%-WATER - 50 ML IVPB ONE (09:40)
[2020-07-23] MEDS: ZINC SULFATE 220 MG CAPSULE (FP) PO SCH (10:37)
[2020-07-23] MEDS: CEFTRIAXONE 1 GM in DEXTROSE 5%-WATER - 50 ML IVPB SCH (10:37)
[2020-07-23] MEDS: ASCORBIC ACID 500 MG TABLET (FP) PO SCH (10:37)
[2020-07-23] MEDS: DEXAMETHASONE SOD PHOSPHATE 4 MG/1 ML VIAL IVPUSH SCH (10:37)
[2020-07-23] MEDS: PANTOPRAZOLE 40 MG TABLET PO SCH ×2 (10:37→22:58)
[2020-07-23] MEDS: CHOLECALCIFEROL (VIT D3) 5000 UNITS (125 MCG) CAP PO SCH (10:38)
[2020-07-24] MEDS: CHOLECALCIFEROL (VIT D3) 5000 UNITS (125 MCG) CAP PO SCH (09:09)
[2020-07-24] MEDS: PANTOPRAZOLE 40 MG TABLET PO SCH ×2 (09:09→22:00)
[2020-07-24] MEDS: ASCORBIC ACID 500 MG TABLET (FP) PO SCH (09:09)
[2020-07-24] MEDS: ZINC SULFATE 220 MG CAPSULE (FP) PO SCH (09:09)
[2020-07-24 10:02] LABS: BASO % 0.1 % (0-2.0); HEMATOCRIT 32.8 % (35.4-49); HEMOGLOBIN 10.3 GM/dL (11.7-16.9); LYMPH % 12.6 % (8-40); MCH 24.3 pg (25.7-33.7); MCHC 31.5 g/dl (32.0-35.9); MEAN CELL VOLUME 77.2 fl (80-96); MEAN PLT VOLUME 7.7 fl (7.5-11.1); NEUT % 80.3 % (42.8-82.8); PLATELET COUNT 350 K/MM3 (134-434); RBC 4.25 M/mm3 (4.00-5.60); RDW 25.4 % (11.9-15.9); WHITE BLOOD COUNT 13.7 K/mm3 (4.0-10.0)
[2020-07-24 10:31] LABS: POTASSIUM 4.3 mmol/L (3.5-5.1)
[2020-07-24 10:48] LABS: ALBUMIN 2.2 g/dl (3.4-5.0); CALCIUM 8.1 mg/dL (8.5-10.1)
[2020-07-24 10:49] LABS: BLOOD UREA NITROGEN 37.3 mg/dL (7-18)
[2020-07-24 10:51] LABS: CREATININE 1.4 mg/dL (0.55-1.3); PHOSPHOROUS 3.6 mg/dL (2.5-4.9)
[2020-07-24 10:53] LABS: BILIRUBIN,TOTAL 0.3 mg/dL (0.2-1); MAGNESIUM 2.4 mg/dL (1.8-2.4); TOT PROT 6.2 g/dl (6.4-8.2)
[2020-07-24] MEDS ORDERED: BISACODYL 5 MG TABLET.DR (FP) PO ONE (16:00)
[2020-07-24] MEDS ORDERED: POLYETHYLENE GLYCOL 3350 255 GM BTL PO ONE (17:00)
[2020-07-25 10:08] LABS: BASO % 0.2 % (0-2.0); EOS % 0.1 % (0-4.5); HEMATOCRIT 31.6 % (35.4-49); HEMOGLOBIN 10.1 GM/dL (11.7-16.9); LYMPH % 10.5 % (8-40); MCH 24.6 pg (25.7-33.7); MCHC 31.9 g/dl (32.0-35.9); MEAN CELL VOLUME 77.1 fl (80-96); MEAN PLT VOLUME 7.4 fl (7.5-11.1); MONO % 6.1 % (3.8-10.2); NEUT % 83.1 % (42.8-82.8); PLATELET COUNT 347 K/MM3 (134-434); WHITE BLOOD COUNT 12.9 K/mm3 (4.0-10.0)
[2020-07-25 10:28] LABS: POTASSIUM 4.6 mmol/L (3.5-5.1)
[2020-07-25 10:35] LABS: BLOOD UREA NITROGEN 25.2 mg/dL (7-18); CALCIUM 8.2 mg/dL (8.5-10.1); MAGNESIUM 2.4 mg/dL (1.8-2.4)
[2020-07-25 10:38] LABS: CREATININE 1.2 mg/dL (0.55-1.3)
[2020-07-25 10:52] LABS: PHOSPHOROUS 2.9 mg/dL (2.5-4.9)
[2020-07-25 11:57] LABS: ANISOCYTOSIS 0; MACROCYTOSIS 0; PLATELET ESTIMATE NORMAL
[2020-07-25] MEDS: CHOLECALCIFEROL (VIT D3) 5000 UNITS (125 MCG) CAP PO SCH (12:52)
[2020-07-25] MEDS: ZINC SULFATE 220 MG CAPSULE (FP) PO SCH (12:52)
[2020-07-25] MEDS: ASCORBIC ACID 500 MG TABLET (FP) PO SCH (12:52)
[2020-07-25] MEDS: PANTOPRAZOLE 40 MG TABLET PO SCH ×2 (12:52→21:11)
[2020-07-25] MEDS ORDERED: PT OWN MED DRAWER 7, Y5N ONE (23:16)
[2020-07-26] MEDS ORDERED: PT OWN MED DRAWER 7, Y5N ONE (09:37)
[2020-07-26] MEDS: ASCORBIC ACID 500 MG TABLET (FP) PO SCH (09:43)
[2020-07-26] MEDS: PANTOPRAZOLE 40 MG TABLET PO SCH ×2 (09:43→21:02)
[2020-07-26] MEDS: ZINC SULFATE 220 MG CAPSULE (FP) PO SCH (09:43)
[2020-07-26] MEDS: CHOLECALCIFEROL (VIT D3) 5000 UNITS (125 MCG) CAP PO SCH (09:43)
[2020-07-26 10:08] LABS: HEMATOCRIT 32.8 % (35.4-49); HEMOGLOBIN 10.6 GM/dL (11.7-16.9); MCHC 32.4 g/dl (32.0-35.9); MEAN CELL VOLUME 77.1 fl (80-96); MEAN PLT VOLUME 7.3 fl (7.5-11.1); PLATELET COUNT 344 K/MM3 (134-434); RBC 4.25 M/mm3 (4.00-5.60); RDW 26.5 % (11.9-15.9); WHITE BLOOD COUNT 12.8 K/mm3 (4.0-10.0)
[2020-07-26 10:25] LABS: POTASSIUM 4.4 mmol/L (3.5-5.1)
[2020-07-26 10:30] LABS: BLOOD UREA NITROGEN 18.2 mg/dL (7-18); CALCIUM 8.4 mg/dL (8.5-10.1)
[2020-07-26 10:31] LABS: MAGNESIUM 2.4 mg/dL (1.8-2.4)
[2020-07-26 10:33] LABS: CREATININE 1.4 mg/dL (0.55-1.3)
[2020-07-26 10:34] LABS: PHOSPHOROUS 3.2 mg/dL (2.5-4.9)
[2020-07-27] MEDS: ASCORBIC ACID 500 MG TABLET (FP) PO SCH (11:21)
[2020-07-27] MEDS: ZINC SULFATE 220 MG CAPSULE (FP) PO SCH (11:21)
[2020-07-27] MEDS: PANTOPRAZOLE 40 MG TABLET PO SCH ×2 (11:21→21:22)
[2020-07-27] MEDS: CHOLECALCIFEROL (VIT D3) 5000 UNITS (125 MCG) CAP PO SCH (11:21)
[2020-07-27 12:07] LABS: HEMATOCRIT 29.7 % (35.4-49); HEMOGLOBIN 9.6 GM/dL (11.7-16.9); MCH 24.9 pg (25.7-33.7); MCHC 32.2 g/dl (32.0-35.9); MEAN CELL VOLUME 77.5 fl (80-96); MEAN PLT VOLUME 7.6 fl (7.5-11.1); PLATELET COUNT 288 K/MM3 (134-434); RBC 3.84 M/mm3 (4.00-5.60); RDW 25.7 % (11.9-15.9); WHITE BLOOD COUNT 10.4 K/mm3 (4.0-10.0)
[2020-07-27 12:33] LABS: POTASSIUM 4.3 mmol/L (3.5-5.1)
[2020-07-27 12:39] LABS: CALCIUM 8.3 mg/dL (8.5-10.1)
[2020-07-27 12:40] LABS: ALBUMIN 2.1 g/dl (3.4-5.0); BLOOD UREA NITROGEN 20.6 mg/dL (7-18); MAGNESIUM 2.3 mg/dL (1.8-2.4)
[2020-07-27 12:43] LABS: CREATININE 1.4 mg/dL (0.55-1.3); PHOSPHOROUS 2.6 mg/dL (2.5-4.9)
[2020-07-27 12:44] LABS: BILIRUBIN,TOTAL 0.7 mg/dL (0.2-1); TOT PROT 6.1 g/dl (6.4-8.2)
[2020-07-28 09:33] LABS: HEMATOCRIT 32.1 % (35.4-49); HEMOGLOBIN 10.2 GM/dL (11.7-16.9); MCH 24.9 pg (25.7-33.7); MCHC 31.9 g/dl (32.0-35.9); MEAN PLT VOLUME 7.7 fl (7.5-11.1); PLATELET COUNT 288 K/MM3 (134-434); RBC 4.12 M/mm3 (4.00-5.60); RDW 25.6 % (11.9-15.9)
[2020-07-28 09:47] LABS: POTASSIUM 4.5 mmol/L (3.5-5.1)
[2020-07-28 10:11] LABS: CREATININE 1.3 mg/dL (0.55-1.3)
[2020-07-28 10:12] LABS: CALCIUM 8.5 mg/dL (8.5-10.1)
[2020-07-28] MEDS ORDERED: PT OWN MED DRAWER 7, Y5N ONE (11:02)
[2020-07-28] MEDS: ASCORBIC ACID 500 MG TABLET (FP) PO SCH ×2 (11:09→21:35)
[2020-07-28] MEDS: CHOLECALCIFEROL (VIT D3) 5000 UNITS (125 MCG) CAP PO SCH (11:09)
[2020-07-28] MEDS: ZINC SULFATE 220 MG CAPSULE (FP) PO SCH (11:09)
[2020-07-28] MEDS: PANTOPRAZOLE 40 MG TABLET PO SCH ×2 (11:09→21:34)
[2020-07-29 09:22] LABS: BASO % 0.7 % (0-2.0); EOS % 0.3 % (0-4.5); HEMATOCRIT 29.3 % (35.4-49); HEMOGLOBIN 9.6 GM/dL (11.7-16.9); LYMPH % 8.9 % (8-40); MCH 24.9 pg (25.7-33.7); MCHC 32.7 g/dl (32.0-35.9); MEAN CELL VOLUME 76.3 fl (80-96); MEAN PLT VOLUME 7.5 fl (7.5-11.1); MONO % 8.4 % (3.8-10.2); NEUT % 81.7 % (42.8-82.8); PLATELET COUNT 243 K/MM3 (134-434); RBC 3.85 M/mm3 (4.00-5.60); RDW 25.7 % (11.9-15.9); WHITE BLOOD COUNT 10.8 K/mm3 (4.0-10.0)
[2020-07-29 10:07] LABS: POTASSIUM 4.1 mmol/L (3.5-5.1)
[2020-07-29] MEDS ORDERED: PT OWN MED DRAWER 7, Y5N ONE (10:35)
[2020-07-29 10:42] LABS: BILIRUBIN,TOTAL 0.4 mg/dL (0.2-1); TOT PROT 6.5 g/dl (6.4-8.2)
[2020-07-29 10:46] LABS: CREATININE 1.4 mg/dL (0.55-1.3)
[2020-07-29 10:48] LABS: ALBUMIN 2.2 g/dl (3.4-5.0); BLOOD UREA NITROGEN 21.7 mg/dL (7-18); CALCIUM 8.1 mg/dL (8.5-10.1)
[2020-07-29 10:49] LABS: MAGNESIUM 2.3 mg/dL (1.8-2.4)
[2020-07-29 10:51] LABS: PHOSPHOROUS 2.8 mg/dL (2.5-4.9)
[2020-07-29] MEDS: ASCORBIC ACID 500 MG TABLET (FP) PO SCH ×3 (11:23→22:31)
[2020-07-29] MEDS: ZINC SULFATE 220 MG CAPSULE (FP) PO SCH ×2 (11:24→11:32)
[2020-07-29] MEDS: PANTOPRAZOLE 40 MG TABLET PO SCH ×4 (11:24→22:31)
[2020-07-29] MEDS: CHOLECALCIFEROL (VIT D3) 5000 UNITS (125 MCG) CAP PO SCH ×2 (11:24→11:32)
[2020-07-29 13:38] LABS: ANISOCYTOSIS 2+; MACROCYTOSIS 0; PLATELET ESTIMATE NORMAL
[2020-07-30 06:30] VITALS: PULSE 100
[2020-07-30] MEDS: CHOLECALCIFEROL (VIT D3) 5000 UNITS (125 MCG) CAP PO SCH (11:09)
[2020-07-30] MEDS: ASCORBIC ACID 500 MG TABLET (FP) PO SCH (11:09)
[2020-07-30] MEDS: ZINC SULFATE 220 MG CAPSULE (FP) PO SCH (11:09)
[2020-07-30] MEDS: PANTOPRAZOLE 40 MG TABLET PO SCH (11:09)
[2020-07-30] MEDS ORDERED: PT OWN MED DRAWER 7, Y5N ONE (12:49)
[2020-07-30 18:23] VITALS: BP 128/72; TEMP 98.9
== END 2020-07-30 19:42 | disposition home or self-care (01) | DRG 374 ==
LOC: JER 06:46 → JERBED 08:14 → J5S 15:26
PROVIDERS: ADMIT Internal Medicine
PROC: 30233N1 Transfusion of Nonautologous Red Blood Cells into Peripheral Vein, Percutaneous Approach (ICD-10-PCS; 2020-07-15)
PROC: 30233N1 Transfusion of Nonautologous Red Blood Cells into Peripheral Vein, Percutaneous Approach (ICD-10-PCS; 2020-07-16)
PROC: XW033E5 Introduction of Remdesivir Anti-infective into Peripheral Vein, Percutaneous Approach, New Technology Group 5 (ICD-10-PCS; principal; 2020-07-17)
PROC: XW13325 Transfusion of Convalescent Plasma (Nonautologous) into Peripheral Vein, Percutaneous Approach, New Technology Group 5 (ICD-10-PCS; 2020-07-17)
PROC: 0DB28ZZ Excision of Middle Esophagus, Via Natural or Artificial Opening Endoscopic (ICD-10-PCS; 2020-07-25)
PROC: 0DB68ZX Excision of Stomach, Via Natural or Artificial Opening Endoscopic, Diagnostic (ICD-10-PCS; 2020-07-25)
DX: C16.9 Malignant neoplasm of stomach, unspecified (principal); U07.1 COVID-19; A41.89 Other specified sepsis; J12.82 Pneumonia due to coronavirus disease 2019; J96.01 Acute respiratory failure with hypoxia; D62 Acute posthemorrhagic anemia; K92.2 Gastrointestinal hemorrhage, unspecified; N17.9 Acute kidney failure, unspecified; I12.9 Hypertensive chronic kidney disease with stage 1 through stage 4 chronic kidney disease, or unspecified chronic kidney disease; N18.31 Chronic kidney disease, stage 3a; R73.03 Prediabetes; E78.5 Hyperlipidemia, unspecified; M19.90 Unspecified osteoarthritis, unspecified site; K21.9 Gastro-esophageal reflux disease without esophagitis; N40.0 Benign prostatic hyperplasia without lower urinary tract symptoms
CPT/HCPCS: 36415; 36430; 36511; 71045-TC-FY; 74176-TC; 80048; 80053; 81003; 82728; 83540; 83550; 83605; 83615; 83690; 83735; 84100; 84484; 85025; 85027; 85379; 85610; 85730; 86140; 86850; 86900; 86901; 86922; 87040; 87086; 88305-TC; 88341-TC; 93005; 93010; 94010; 99285-25; C9399; C9803; J0131; J1100; P9017; P9038; P9058; U0003